=== PATIENT | female | born 1975 | race Caucasian/White ===

== ENCOUNTER 2022-09-19 09:10 | Outpatient (CLI) | payer OTHER, SELFPAY ==
--- NOTE | 2022-09-19 11:00 | NEURO_ITS ---
Impression: History of left arm pain. # Normal nerve conduction study # Normal needle/EMG exam. # No evidence of Carpal Tunnel Syndrome or ulnar neuropathy. # Clinical correlation recommended. Motor Nerve Conduction Upper Extremities Median Nerve Conduction Velocity (m/sec) Terminal Latency (msec) Response Voltage(mV) Elbow-Wrist Wrist Elbow Wrist Right 63 2.5 7 8 Left 62 2.7 6 9 Ulnar Nerve Conduction Velocity (m/sec) Terminal Latency (msec) Response Voltage(mV) Above Elbow Below Elbow Wrist Above Elbow Below Elbow Wrist Right 65 63 2.2 5 5 7 Left 62 62 2.2 5 5 7 F-Wave Latency Median (ms) Ulnar (ms) Right 23.8 24.0 Left 24.5 23.9 Sensory Nerve Conduction Upper Extremities Median Nerve Stimulation Terminal Latency (msec) Wrist/Digit Response Voltage (uV) Wrist Right 2.8/2.8 63/69 Left 2.7/2.9 73/79 Ulnar Nerve Stimulation Terminal Latency (msec) Wrist/Digit Response Voltage (uV) Wrist Right 2.4 51 Left 2.5 61 Radial Nerve Terminal Latency (msec) Response Voltage(mV) Right 2.1 48 Left 2.0 54 Left Right Muscles Examined Fibrillation Fasciculation Scarcity Voltage Duration Left Right Left Right Left Right Left Right Left Right Deltoid Biceps x x Brachioradialis Triceps x x Pronator Teres x x Ext Indicis x x Ext Digitorum x x Abd Poll Brev x x 1st Dorsal Interosseus Paraspinals MTDD
== END 2022-09-19 09:11 | disposition home or self-care (01) ==
LOC: ANHNEURO 09:13
PROVIDERS: PCP Internal Medicine Infectious Disease; Visit Provider Internal Medicine Infectious Disease
DX: G62.9 Polyneuropathy, unspecified (principal)
CPT/HCPCS: 95886; 95911